=== PATIENT | male | born 1960 | race Two or more races ===

== ENCOUNTER 2016-04-17 11:24 | Inpatient (IN) | payer MEDICAID, OTHER ==
[~2016-04-17] VITALS: Ht 182.9 cm; Wt 89.8 kg
[2016-04-17 12:01] LABS: BASOPHILS # (AUTO) 0.1 /CMM (0.0-0.2); BASOPHILS % (AUTO) 1.3 % (0.0-2.0); DIFF TOTAL % 100 %; EOSINOPHILS # (AUTO) 0.1 /CMM (0.0-0.7); EOSINOPHILS % (AUTO) 1.2 % (0.0-6.0); HEMATOCRIT 43 % (39-51); HEMOGLOBIN 14.4 g/dL (13.5-17.5); LYMPHOCYTES # (AUTO) 1.5 /CMM (0.8-4.8); LYMPHOCYTES % (AUTO) 14.1 % (20.0-44.0); MEAN CORPUSCULAR HEMOGLOBIN 31 PG (26.0-33.0); MEAN CORPUSCULAR HGB CONC 33 g/dl (31.0-36.0); MEAN CORPUSCULAR VOLUME 92 fL (80-96); MONOCYTES # (AUTO) 0.6 /CMM (0.1-1.30); MONOCYTES % (AUTO) 5.2 % (2.0-12.0); NEUTROPHILS # (AUTO) 8.3 /CMM (1.8-8.9); NEUTROPHILS % (AUTO) 78.2 % (43.0-81.0); PLATELET COUNT (AUTO) 189 /CMM (150-450); RED BLOOD CELL COUNT(AUTO) 4.71 MIL/uL (4.5-6.0); WHITE BLOOD COUNT (AUTO) 10.6 K/uL (4.3-11.0)
[2016-04-17] MEDS ORDERED: ESCI20TA PO (12:07)
[2016-04-17] MEDS ORDERED: ASPI81TA2 PO (12:07)
[2016-04-17] MEDS ORDERED: METF500T4 PO (12:07)
[2016-04-17] MEDS ORDERED: LISI-603 PO (12:07)
[2016-04-17] MEDS ORDERED: ISOS30TA6 PO (12:07)
[2016-04-17] MEDS ORDERED: ATOR80TA PO (12:07)
[2016-04-17] MEDS ORDERED: HYDR25TA4 PO (12:07)
[2016-04-17] MEDS ORDERED: METO25TA6 PO (12:07)
[2016-04-17 12:20] LABS: CALCIUM, SERUM 8.8 mg/dL (8.5-10.1); CREATININE 0.9 mg/dL (0.6-1.3); POTASSIUM 3.8 mmol/L (3.5-5.1)
[2016-04-17 12:23] LABS: PROTHROMBIN TIME 10.5 SECS (9.5-12.7)
[2016-04-17 12:25] LABS: BILIRUBIN,DIRECT 0.1 mg/dL (0.0-0.2); BILIRUBIN,TOTAL 0.5 mg/dL (0.2-1.0); INDIRECT BILIRUBIN 0.4 mg/dL (0.0-1.1); TOTAL PROTEIN, SERUM 7.5 g/dL (6.4-8.2)
[2016-04-17 12:27] LABS: TROPONIN I 0.042 ng/mL (0.00-0.056)
[2016-04-17 13:30] VITALS: BP 132/91
[2016-04-17] MEDS ORDERED: MORPHINE SULFATE INJ 2 MG/ML DISP.SYRIN IV PRN (15:30)
[2016-04-17] MEDS ORDERED: Z GUARD REMEDY 2 OZ OINT TP PRN (15:30)
[2016-04-17] MEDS ORDERED: MAG HYDROX/AL HYDROX/SIMETH 30 ML UDC PO PRN (15:30)
[2016-04-17] MEDS ORDERED: *INSULIN REGULAR(HUMULIN R)HUM 100 UNIT/ML VIAL SQ PRN (15:30)
[2016-04-17] MEDS ORDERED: MAGNESIUM HYDROXIDE 30 ML UDC PO PRN (15:30)
[2016-04-17] MEDS ORDERED: DEXTROSE 50%-WATER 50 ML DISP.SYRIN IV PRN (15:30)
[2016-04-17] MEDS ORDERED: HYDROCODONE/APAP 5/325MG 1 EACH TABLET PO PRN (15:30)
[2016-04-17] MEDS ORDERED: ONDANSETRON HCL/PF 4 MG/2 ML VIAL IVP PRN (15:30)
[2016-04-17] MEDS ORDERED: INSULIN REGULAR, HUMAN 100 UNIT/ML 3 ML VIAL SQ PRN (15:30)
[2016-04-17] MEDS ORDERED: ACETAMINOPHEN 325 MG TABLET PO PRN (15:30)
[2016-04-17 16:00] VITALS: BP 119/92
[2016-04-17] MEDS: METOPROLOL TARTRATE 25 MG TABLET PO SCH (16:22)
[2016-04-17] MEDS: ISOSORBIDE MONONITRATE (30MG) 30 MG TAB.SR.24H PO SCH (16:32)
[2016-04-17] MEDS ORDERED: METOPROLOL TARTRATE 25 MG TABLET PO SCH (17:00)
[2016-04-17] MEDS ORDERED: ENOXAPARIN SODIUM 40 MG/0.4 ML DISP.SYRIN SQ SCH (17:00)
[2016-04-17] MEDS: BLOOD SUGAR DIAGNOSTIC 1 EACH STRIP VI SCH ×2 (17:28→22:32)
[2016-04-17 20:00] VITALS: BP 100/53
[2016-04-17] MEDS: NITROGLYCERIN 30 GM TUBE TP SCH (21:00)
[2016-04-17 22:00] VITALS: BP 100/53
[2016-04-17] MEDS: ZOLPIDEM TARTRATE 5 MG TABLET PO PRN (22:31)
[2016-04-18] VITALS: BP_SYST 100; BP_SYST 88; BP_DIAS 59; BP_DIAS 64
[2016-04-18 04:00] VITALS: BP 120/57
[2016-04-18 07:00] VITALS: BP 118/59
[2016-04-18] MEDS: BLOOD SUGAR DIAGNOSTIC 1 EACH STRIP VI SCH ×4 (07:01→21:34)
[2016-04-18 07:55] LABS: BASOPHILS % (AUTO) 0.5 % (0.0-2.0); DIFF TOTAL % 100 %; EOSINOPHILS # (AUTO) 0.2 /CMM (0.0-0.7); HEMATOCRIT 39 % (39-51); HEMOGLOBIN 13.4 g/dL (13.5-17.5); LYMPHOCYTES # (AUTO) 3.2 /CMM (0.8-4.8); LYMPHOCYTES % (AUTO) 38.9 % (20.0-44.0); MEAN CORPUSCULAR HEMOGLOBIN 31 PG (26.0-33.0); MEAN CORPUSCULAR HGB CONC 34 g/dl (31.0-36.0); MEAN CORPUSCULAR VOLUME 91 fL (80-96); MONOCYTES # (AUTO) 0.6 /CMM (0.1-1.30); MONOCYTES % (AUTO) 7.5 % (2.0-12.0); NEUTROPHILS # (AUTO) 4.2 /CMM (1.8-8.9); NEUTROPHILS % (AUTO) 51.1 % (43.0-81.0); PLATELET COUNT (AUTO) 199 /CMM (150-450); RED BLOOD CELL COUNT(AUTO) 4.32 MIL/uL (4.5-6.0); WHITE BLOOD COUNT (AUTO) 8.2 K/uL (4.3-11.0)
[2016-04-18 08:17] LABS: CALCIUM, SERUM 8.5 mg/dL (8.5-10.1); CREATININE 0.8 mg/dL (0.6-1.3); PHOSPHORUS 3.9 mg/dL (2.5-4.9); POTASSIUM 3.9 mmol/L (3.5-5.1)
[2016-04-18] MEDS ORDERED: ASPIRIN 81 MG TAB.CHEW PO SCH ×2 (09:00)
[2016-04-18] MEDS: NITROGLYCERIN 30 GM TUBE TP SCH ×2 (09:00→21:34)
[2016-04-18] MEDS: ESCITALOPRAM OXALATE (10 MG) 10 MG TABLET PO SCH (09:59)
[2016-04-18] MEDS: METOPROLOL TARTRATE 25 MG TABLET PO SCH ×2 (09:59→17:13)
[2016-04-18] MEDS: ASPIRIN 325 MG TABLET PO SCH (09:59)
[2016-04-18] MEDS: ISOSORBIDE MONONITRATE (30MG) 30 MG TAB.SR.24H PO SCH (10:00)
[2016-04-18] MEDS: ATORVASTATIN 40 MG TABLET PO SCH (10:00)
[2016-04-18] MEDS: PANTOPRAZOLE 40 MG TABLET.DR PO SCH (10:00)
[2016-04-18] MEDS: HYDROCHLOROTHIAZIDE 25 MG TABLET PO SCH (10:00)
[2016-04-18] MEDS: LISINOPRIL (20MG) 20 MG TABLET PO SCH (10:00)
[2016-04-18 12:00] VITALS: BP 128/62
[2016-04-18] MEDS: ENOXAPARIN SODIUM 100 MG/ML DISP.SYRIN SQ SCH (13:16)
[2016-04-18 16:00] VITALS: BP 121/61
[2016-04-18 20:00] VITALS: BP 133/56
[2016-04-19] VITALS (9 sets, daily range): BP systolic 95–154; BP diastolic 56–82
[2016-04-19] MEDS: ZOLPIDEM TARTRATE 5 MG TABLET PO PRN (00:18)
[2016-04-19] MEDS: ENOXAPARIN SODIUM 100 MG/ML DISP.SYRIN SQ SCH ×2 (01:20→12:10)
[2016-04-19] MEDS: BLOOD SUGAR DIAGNOSTIC 1 EACH STRIP VI SCH ×2 (08:25→12:09)
[2016-04-19] MEDS: PANTOPRAZOLE 40 MG TABLET.DR PO SCH (08:25)
[2016-04-19] MEDS: ASPIRIN 325 MG TABLET PO SCH (08:26)
[2016-04-19] MEDS: ESCITALOPRAM OXALATE (10 MG) 10 MG TABLET PO SCH (08:26)
[2016-04-19] MEDS: ATORVASTATIN 40 MG TABLET PO SCH (08:26)
[2016-04-19] MEDS: ISOSORBIDE MONONITRATE (30MG) 30 MG TAB.SR.24H PO SCH (08:28)
[2016-04-19] MEDS: LISINOPRIL (20MG) 20 MG TABLET PO SCH (08:28)
[2016-04-19] MEDS: HYDROCHLOROTHIAZIDE 25 MG TABLET PO SCH (08:30)
[2016-04-19] MEDS: METOPROLOL TARTRATE 25 MG TABLET PO SCH (08:30)
[2016-04-19] MEDS: NITROGLYCERIN 30 GM TUBE TP SCH (08:31)
[2016-04-19] MEDS ORDERED: METO25TA20 PO (13:47)
[2016-04-19] MEDS ORDERED: Isosorbide Mononitrate PO (13:47)
[2016-04-19] MEDS ORDERED: CLOP75TA2 PO (13:47)
== END 2016-04-19 14:40 | disposition home or self-care (01) | DRG 190 ==
LOC: ER 11:25 → TELE 13:58 → MED 04-19 14:35
PROVIDERS: ADMIT Internal Medicine; ATTEND Internal Medicine
DX: I21.4 Non-ST elevation (NSTEMI) myocardial infarction (principal); E11.51 Type 2 diabetes mellitus with diabetic peripheral angiopathy without gangrene; I25.110 Atherosclerotic heart disease of native coronary artery with unstable angina pectoris; I25.2 Old myocardial infarction; I10 Essential (primary) hypertension; S81.852A Open bite, left lower leg, initial encounter; W54.0XXA Bitten by dog, initial encounter; Y92.9 Unspecified place or not applicable; I65.23 Occlusion and stenosis of bilateral carotid arteries; E78.00 Pure hypercholesterolemia, unspecified; F17.210 Nicotine dependence, cigarettes, uncomplicated; Z90.49 Acquired absence of other specified parts of digestive tract; E78.5 Hyperlipidemia, unspecified; K21.9 Gastro-esophageal reflux disease without esophagitis
CPT/HCPCS: 36415; 71010-TC; 80048-TC; 80061-TC; 80076-TC; 82962-TC; 83735-TC; 84100-TC; 84484-TC; 85025-TC; 85730-TC; 87081-TC; 93307-TC; 93880-TC; A4606; J1650; J1815; Z7610